=== PATIENT | female | born 1975 | race Caucasian/White ===

== ENCOUNTER 2021-11-01 07:30 | Observation (INO) ==
[~2021-11-01 07:30] MED LIST: Buffered Lidocaine 1% SYRIN 1 ml INTRADERM ONE; Lactated Ringers 1000 ml BAG 1,000 ML IV SCH
[2021-11-01] MEDS ORDERED: ceFAZolin 2 GM in NS PREMIX 2 GM/100 ML BAG IVPB ONE (09:22)
[2021-11-01] MEDS ORDERED: Famotidine IV 10 MG/ML 2 ml VIAL (20 mg) ONE (09:22)
[2021-11-01] MEDS: Famotidine IV 10 MG/ML 2 ml VIAL (20 mg) IV ONE ×2 (09:23→09:29)
[2021-11-01] MEDS ORDERED: ROPIVACAINE 5 MG/ML 30 ML BTL (0.5%) ONE (09:33)
[2021-11-01] MEDS ORDERED: fentaNYL 100 mcg/2 ml 50 MCG/ML VIAL ONE ×2 (09:58→13:14)
[2021-11-01] MEDS ORDERED: Lidocaine 2% PF 5 ML VIAL ONE (09:58)
[2021-11-01] MEDS ORDERED: Midazolam 2 mg/2 ml VIAL 1 mg/ml 2 ml VIAL (2 mg) ONE ×2 (09:58→11:23)
[2021-11-01] MEDS ORDERED: Dexamethasone IV 4 MG/ML VIAL 1 ml VIAL ONE ×2 (09:58→11:16)
[2021-11-01] MEDS ORDERED: Ondansetron 4 mg VIAL 2 MG/ML 2 ml VIAL ONE (09:58)
[2021-11-01] MEDS ORDERED: Bupivacaine 0.5% PF 10 ML SDV VIAL INJ ONE (10:56)
[2021-11-01] MEDS ORDERED: Propofol 10 MG/ML 20 ML BTL ONE (11:49)
[2021-11-01] MEDS ORDERED: Phenylephrine IV 10 MG/ML 1 ml VIAL ONE (11:53)
[2021-11-01] MEDS ORDERED: Naloxone 0.4 mg VIAL 0.4 mg/ml 1 ml VIAL IV PRN (12:05)
[2021-11-01] MEDS ORDERED: Ondansetron 4 mg VIAL 2 MG/ML 2 ml VIAL IV PRN ×2 (12:05→12:22)
[2021-11-01] MEDS ORDERED: fentaNYL 100 mcg/2 ml 50 MCG/ML VIAL IV PRN (12:05)
[2021-11-01] MEDS ORDERED: HYDROmorphone 1 MG/1 ML SYRINGE IV PRN (12:05)
[2021-11-01] MEDS ORDERED: Ondansetron ODT 4 mg TAB 4 MG TAB PO PRN (12:22)
[2021-11-01] MEDS ORDERED: Magnesium Hydroxide LIQ 30 ML UDC PO PRN (12:22)
[2021-11-01] MEDS ORDERED: Lactulose 30 ml UDC PO PRN (12:22)
[2021-11-01] MEDS ORDERED: Morphine 2 MG/ML SYRINGE IV PRN (12:22)
[2021-11-01] MEDS ORDERED: Lactated Ringers 1000 ml BAG 1,000 ML IV SCH (13:00)
[2021-11-01] MEDS: ceFAZolin 1 GM ADVAN 1 GM in NS 0.9% 50 ML 50 ML IVPB SCH (18:43)
[2021-11-01] MEDS: Magnesium Hydroxide LIQ 30 ML UDC PO SCH (20:06)
[2021-11-02] MEDS: ceFAZolin 1 GM ADVAN 1 GM in NS 0.9% 50 ML 50 ML IVPB SCH ×2 (03:10→11:12)
[2021-11-02 06:20] LABS: Hematocrit 32 % (35-47); Hemoglobin 10.6 g/dL (12.0-16.0); Mean Platelet Volume 8.4 fL (7.4-10.4); Platelet Count 129 10^3/uL (150-450)
[2021-11-02 06:56] LABS: Calcium 7.8 mg/dL (8.6-10.3); Potassium 3.6 mmol/L (3.5-5.0); eGFR CKD-EPI 92.8 (>60)
[2021-11-02] MEDS: Magnesium Hydroxide LIQ 30 ML UDC PO SCH (08:00)
[2021-11-02 08:58] VITALS: BP 98/63
[2021-11-02] MEDS ORDERED: Vitamin THERAPEUTIC TAB PO SCH (09:00)
== END 2021-11-02 12:32 | disposition home or self-care (01) ==
LOC: INTOOBSV 08:42 → AA 08:42 → SSU 15:02
PROVIDERS: ADMIT Orthopaedic Surgery Adult Reconstructive Orthopaedic Surgery; ATTEND Orthopaedic Surgery Adult Reconstructive Orthopaedic Surgery